=== PATIENT | female | born 1960 | race Caucasian/White ===

== ENCOUNTER → 2017-04-24 | Outpatient (CLI) | payer OTHER | LOC: BMCIMAGING 10:12 | PROVIDERS: ATTEND Internal Medicine Rheumatology | DX: M25.841 Other specified joint disorders, right hand (principal); M25.842 Other specified joint disorders, left hand; M25.871 Other specified joint disorders, right ankle and foot; M25.872 Other specified joint disorders, left ankle and foot ==

== ENCOUNTER → 2017-05-27 | Outpatient (CLI) | payer OTHER | LOC: FIMAGING 10:06 | PROVIDERS: ATTEND Internal Medicine | DX: Z12.31 Encounter for screening mammogram for malignant neoplasm of breast (principal) | CPT/HCPCS: G0202 ==

== ENCOUNTER → 2017-06-12 | Outpatient (CLI) | payer OTHER | LOC: FIMAGING 11:11 | PROVIDERS: ATTEND Internal Medicine | DX: Z13.820 Encounter for screening for osteoporosis (principal); M85.80 Other specified disorders of bone density and structure, unspecified site ==